=== PATIENT | male | born 1995 | race Caucasian/White ===

== ENCOUNTER 2019-10-05 21:47 | Emergency (ER) | payer SELFPAY ==
[~2019-10-05] VITALS: Ht 172.7 cm; Wt 64.9 kg
[2019-10-05 22:02] VITALS: BP 108/56
[2019-10-05] MEDS ORDERED: CYCL10TA2 PO (22:20)
[2019-10-05] MEDS ORDERED: PRED20TA PO (22:20)
[2019-10-05] MEDS ORDERED: HYDR-3164 PO (22:20)
--- NOTE | 2019-10-05 22:21 | PHYS DOC ---
Past Medical History Past Medical History: Other Additional Past Medical Histor: CHRONIC BACK PAIN (LANEY CONROY) Past Surgical History: No Surgical History (LANEY CONROY) Alcohol Use: None Drug Use: None (LANEY CONROY) Attending Signature I have participated in the care of this patient and I have reviewed and agree with all pertinent clinical information above including history, exam, and recommendations. (LIDIA RIZVI MD) Adult General Chief Complaint Chief Complaint: LOWER BACK PAIN OR INJURY HPI HPI Patient is a 24 year old M with R lower back pain. 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 He does report having problems with this in the past but reports it has been several months since he had a flare. He has taken steroids and muscle relaxers in the past. Pt states he has taken ibuprofen and tylenol at home without relief. (LANEY CONROY) Review of Systems Review of Systems Constitutional: Denies fever or chills [] Respiratory: Denies cough or shortness of breath [] Cardiovascular: Denies chest pain GI: Denies abdominal pain, nausea, vomiting, bloody stools or diarrhea [] : Denies dysuria or hematuria [] Musculoskeletal: Reports low back pain. Denies hip or leg pain. Integument: Denies rash or skin lesions [] Neurologic: Denies headache, focal weakness or sensory changes. Ambulatory without distress. Denies bowel or bladder dysfunction All other systems were reviewed and found to be within normal limits, except as documented in this note. (LANEY CONROY) Allergies Allergies Allergies Coded Allergies Type Severity Reaction Last Updated Verified tramadol Allergy Unknown 10/05/19 Yes (LIDIA RIZVI MD) Physical Exam Physical Exam Constitutional: Well developed, well nourished, no acute distress, non-toxic appearance. [] Neck: Normal range of motion, no tenderness, supple, no stridor. [] Cardiovascular:Heart rate regular rhythm, no murmur [] Lungs & Thorax: Bilateral breath sounds clear to auscultation [] Abdomen: Bowel sounds normal, soft, no tenderness, no masses, no pulsatile masses. [] Skin: Warm, dry, no erythema, no rash. [] Back: Lumbar midline and perispinous pain with palpation. Spasm noted Extremities: No tenderness, no cyanosis, no clubbing, ROM intact, no edema. [] Neurologic: Alert and oriented X 3, normal motor function, normal sensory function, no focal deficits noted. [] Psychologic: Affect normal, judgement normal, mood normal. [] (LANEY CONROY) Current Patient Data Vital Signs Vital Signs Date Time Temp Pulse Resp B/P (MAP) Pulse Ox O2 Delivery O2 Flow Rate FiO2 10/05/19 22:02 98.2 72 12 108/56 (73) 98 Room Air 98.2 (LIDIA RIZVI MD) EKG EKG [] (LANEY CONROY) Radiology/Procedures Radiology/Procedures [] (LANEY CONROY) Course & Med Decision Making Course & Med Decision Making Pertinent Labs and Imaging studies reviewed. (See chart for details) Discussed covering with prednisone and flexeril. Will give short course of Ullin, but have discussed that narcotics should not be taken for long or for chronic pain. Discussed need for f/u with PCP and that he may need MRI if symptoms persist. (LANEY CONROY) Dragon Disclaimer Dragon Disclaimer This electronic medical record was generated, in whole or in part, using a voice recognition dictation system. (LANEY CONROY) Departure Departure Impression: Primary Impression: Lumbar strain Disposition: 01 HOME, SELF-CARE Condition: STABLE Referrals: NO PCP (PCP) Patient Instructions: Low Back Strain with [facility] Additional Instructions: Ice/heat therapy No heavy lifting x 2 weeks. Scripts Prednisone (PREDNISONE) 20 Mg Tablet 1 TAB PO BID, #10 TAB Prov: LANEY CONROY 10/05/19 Hydrocodone/Apap 5-325 (NORCO 5-325 TABLET) 1 Each Tablet 1-2 TAB PO Q4-6HRS PRN for PAIN, #15 TAB Prov: LANEY CONROY 10/05/19 Cyclobenzaprine Hcl (CYCLOBENZAPRINE HCL) 10 Mg Tablet 1 TAB PO QHS PRN for MUSCLE SPASMS, #21 TAB Prov: LANEY CONROY 10/05/19 LANEY CONROY Oct 05, 2019 22:21 LIDIA RIZVI MD Oct 08, 2019 18:09
== END 2019-10-05 22:23 | disposition home or self-care (01) ==
LOC: ER 21:47
DX: S39.012A Strain of muscle, fascia and tendon of lower back, initial encounter (principal); G89.29 Other chronic pain; Z88.6 Allergy status to analgesic agent; X50.0XXA Overexertion from strenuous movement or load, initial encounter; Y93.89 Activity, other specified; Y92.89 Other specified places as the place of occurrence of the external cause; Y99.8 Other external cause status
CPT/HCPCS: 99283